=== PATIENT | female | born 1995 | race Caucasian/White ===

== ENCOUNTER 2018-01-16 14:45 | Emergency (ER) | payer BC, MEDICAID ==
[~2018-01-16] VITALS: Ht 154.9 cm; Wt 54.5 kg
[2018-01-16 18:39] VITALS: BP 110/60
== END 2018-01-16 18:41 | disposition home or self-care (01) ==
LOC: ER 14:46
DX: G89.29 Other chronic pain (principal); M54.2 Cervicalgia; M40.292 Other kyphosis, cervical region
CPT/HCPCS: 72125; 99284; L0172

== ENCOUNTER 2020-05-16 15:59 | Emergency (ER) | payer BC, MEDICAID ==
[~2020-05-16] VITALS: Ht 170.2 cm; Wt 63.6 kg
[2020-05-16 16:04] VITALS: BP 153/97
== END 2020-05-16 16:47 | disposition home or self-care (01) ==
LOC: ER 15:59
DX: J06.9 Acute upper respiratory infection, unspecified (principal); B97.89 Other viral agents as the cause of diseases classified elsewhere; R05 Cough; R07.89 Other chest pain; Z20.828 Contact with and (suspected) exposure to other viral communicable diseases; F17.200 Nicotine dependence, unspecified, uncomplicated; Z72.89 Other problems related to lifestyle
CPT/HCPCS: 36415; 87635; 99283